=== PATIENT | male | born 1975 ===

== ENCOUNTER 2017-05-04 18:26 | Inpatient (IN) ==
--- NOTE | 2017-05-04 20:01 | Emergency Department Note ---
Arrival - Arrival Chief Complaint: Extremity Problem Stated Complaint: cellulitis/fever ED Nursing Triage Note: PT TRANSFERRED FROM [facility] FOR EVALUATION OF CELLULITIS OF BILAT LOWER EXT AND FEVER. PT REPORTS FEVER AND CHILLS X1 WEEK. PT HAS HISTORY OF CHARCOT FEET. OPEN, WEEPING, WOUND NOTED TO BOTH RIGHT AND LEFT FOOT. Mode of Arrival: Stretcher Time Seen by Provider: 05/04/17 19:11 - History of Present Illness HPI Narrative: This is a 41-year-old male [place] descent with a history of type 2 diabetes on insulin and charcot joint disease who has chronic ulcers of both feet and who has hardware within his right foot who presents with fever and chills for the past week creased pain and swelling of the right foot for which she went to [facility] where it was felt that he may be suffering from osteomyelitis or possibly sepsis. CBC and chemistries were essentially normal. X-ray of the right foot did not show definite osteomyelitis. However the patient was sent to [facility] for diabetic foot and admission. Allergies/Adverse Reactions: Allergies Allergy/AdvReac Type Severity Reaction Status Date / Time ampicillin Allergy Severe RASH Verified 05/04/17 18:42 clindamycin Allergy Severe SHORTNESS Verified 05/04/17 18:42 OF BREATH Home Medications: Home Medications Medication Instructions Recorded Confirmed Type Insulin Detemir [Levemir] 45 unit SUBCUT BEDTIME 02/10/16 02/07/17 History Insulin Regular [HumuLIN R] 10 unit SUBCUT TID 02/10/16 02/07/17 History Aspirin 81 mg PO DAILY 01/13/17 02/07/17 History Lisinopril 5 mg PO DAILY 01/13/17 02/07/17 History Insulin Aspart [NovoLOG FlexPen] 10 units SUBCUT TID W/MEALS 01/14/17 02/07/17 History Simvastatin 10 mg PO DAILY 01/14/17 02/07/17 History HYDROcodone/ACETAMIN 5-325 [[place] 1 tablet PO Q4H PRN #10 tablet 02/07/17 Rx 5-325] Review of System - Review of System Constitutional: Absent: fever, night sweats Eyes: Absent: redness, vision change Head/Ears/Nose/Throat: Absent: epistaxis, nasal drainage Respiratory: Absent: respiratory distress Cardiovascular: Absent: dyspnea on exertion, orthopnea Gastrointestinal: Absent: diarrhea, constipation, hematemesis Genitourinary male: Absent: dysuria, hematuria Musculoskeletal: Present: leg pain. Absent: lower back pain Skin: Absent: change in color, change in hair/nails Neurological: Absent: numbness, paresthesias Psychiatric: Absent: anxiety, depression Endocrine: Absent: heat intolerance, polydipsia, polyuria Hematological/Lymphatic: Absent: easy bruising, lymphadenopathy Allergic/Immunologic: Absent: urticaria, itchy eyes Medical,Surgical,& Family Hx - Medical History Cardio: History of: Hypertension (On Lisinopril) Psychological: No history of: Psychiatric Problems Neurology: No history of: Seizures, Neurological Problems HEENT: History of: Eye Problem (GLASSES) Endocrine: History of: Diabetes Mellitus (IDDM), Diabetes Mellitus (NIDDM), Dyslipidemia Rheumatology: No history of;: Rheumatological Problems Respiratory: History of: Bronchitis (X1) No history of: Respiratory Problems (FLU VAC- NO; PNEU VAC-NO.) Renal: History of: Renal Problems (Chronic Renal Failure-Dr. Avila) Genitourinary: History of: Problems (phimosis) Gastrointestinal: No history of: GI Problems Musculoskeletal: History of: Amputation (LEFT 5TH TOE AMPUTATION.), Musculoskeletal Problems (surgery by Dr. Leonard right foot) Other: History of: Anesthesia Reactions, Skin Problems (x2 Cystic masses Scalp- Sched for Removal Dr. Rascon) - Surgical History Cardiac Surgeries: Patient Denies: Cardiac Surgery Neurologic Surgeries: Patient denies: Neurologic Surgery Abdominal Surgeries: Patient denies: Abdominal Surgery Reproductive Surgeries: Surgical HX of;: Genitourinary Surgery (Circumcision 2015) Orthopedic Surgeries: Surgical HX of;: Orthopedic Surgery (RIGHT FOOT FX WITH INFECTION 2006; LKS) - Family History Family History: Reports;: Family Diabetes, Family Hypertension - Social History Smoking Status: Never smoker Frequency of Alcohol Use: None Type of Drug Use: None Exam Vital Signs: Vital Signs Temperature 99.8 F H 05/04/17 18:26 Pulse Rate 102 H 05/04/17 18:26 Respiratory Rate 18 05/04/17 18:26 Blood Pressure 167/91 05/04/17 18:26 O2 Sat by Pulse Oximetry 98 05/04/17 18:26 - Eye Eye exam: Present: PERRL, EOMI - ENT ENT exam: Present: normal exam, normal oropharynx - Neck Neck exam: Present: normal inspection, full ROM - Chest Chest inspection: Present: normal inspection - Cardiovascular Cardiovascular exam: Present: regular rate, normal rhythm - Abdominal Exam Abdominal exam: Present: soft, normal bowel sounds - Extremities Exam Extremities exam: Present: other (Purulent drainage from a wound on the lateral aspect of the right foot with swelling on the plantar surface. Chronic ulceration of the left foot) - Back Exam Back exam: Present: normal inspection, full ROM - Neurological Exam Neurological exam: Present: alert, oriented X3, CN II-XII intact - Psychiatric Psychiatric exam: Present: normal affect, normal mood - Skin Skin exam: Present: warm, dry Course Course Narrative: The patient is a diabetic foot involving the right foot. Because he has fever and chills may be that he has cellulitis, sepsis or osteomyelitis involving the right foot. Therefore it seems reasonable patient be admitted to the hospital for further evaluation and treatment. The case was discussed with the hospitalist who agreed to admit the patient. Disposition Clinical Impression: Diabetic foot Disposition: Still a Patient Additional Instructions: The case was discussed with the hospitalist who agreed to admit the patient for further evaluation and treatment of possible diabetic foot
--- NOTE | 2017-05-04 20:35 | Hospitalist History & Physical ---
Assessment and Plan (1) Uncontrolled diabetes mellitus Status: Acute Current Visit: Yes (2) History of hypertension Status: Acute Current Visit: Yes (3) Hyperkalemia Status: Acute Current Visit: No (4) Diabetic foot Status: Acute Assessment and plan: Our plan for this patient will be admitting him to our service. Patient has not been started on IV antibiotics. Patient was given some insulin at the [facility] secondary to his increased glucose. Will consult surgery for their evaluation. We will get x-rays of bilateral feet. According to an oral report they had no evidence of osteo-. But the wounds look like they are right on the bone for my evaluation continue home meds as appropriate check an A1c Current Visit: Yes History of Present Illness Chief complaint: Sent from [facility] History of present illness: Mr. Christensen is a 41 year old male with past medical history significant for diabetes , hypertension and increased cholesterol was sent to our hospital from [facility] today. Apparently patient went to primary care clinic today for chills and fever for the past few days. He been noted increasing pain in his bilateral feet. He has what appears to be chronic wounds on both feet both noted to be on the plantar surface. He has a history of sarcoid feet at one time he had a screw placed on his right foot. Both feet and lower legs are warm to touch and tender. They are draining purulent material and they smell infected. I was consulted to admit the patient to our emergency room. Home Medications Medication Instructions Recorded Confirmed Type Insulin Detemir [Levemir] 45 unit SUBCUT BEDTIME 02/10/16 02/07/17 History Insulin Regular [HumuLIN R] 10 unit SUBCUT TID 02/10/16 02/07/17 History Aspirin 81 mg PO DAILY 01/13/17 02/07/17 History Lisinopril 5 mg PO DAILY 01/13/17 02/07/17 History Insulin Aspart [NovoLOG FlexPen] 10 units SUBCUT TID W/MEALS 01/14/17 02/07/17 History Simvastatin 10 mg PO DAILY 01/14/17 02/07/17 History HYDROcodone/ACETAMIN 5-325 [[place] 1 tablet PO Q4H PRN #10 tablet 02/07/17 Rx 5-325] Allergies Allergy/AdvReac Type Severity Reaction Status Date / Time ampicillin Allergy Severe RASH Verified 05/04/17 18:42 clindamycin Allergy Severe SHORTNESS Verified 05/04/17 18:42 OF BREATH Medical,Surgical,& Family Hx - Medical History Cardio: History of: Hypertension (On Lisinopril) Psychological: No history of: Psychiatric Problems Neurology: No history of: Seizures, Neurological Problems HEENT: History of: Eye Problem (GLASSES) Endocrine: History of: Diabetes Mellitus (IDDM), Diabetes Mellitus (NIDDM), Dyslipidemia Rheumatology: No history of;: Rheumatological Problems Respiratory: History of: Bronchitis (X1) No history of: Respiratory Problems (FLU VAC- NO; PNEU VAC-NO.) Renal: History of: Renal Problems (Chronic Renal Failure-Dr. Avila) Genitourinary: History of: Problems (phimosis) Gastrointestinal: No history of: GI Problems Musculoskeletal: History of: Amputation (LEFT 5TH TOE AMPUTATION.), Musculoskeletal Problems (surgery by Dr. Leonard right foot) Other: History of: Anesthesia Reactions, Skin Problems (x2 Cystic masses Scalp- Sched for Removal Dr. Rascon) - Surgical History Cardiac Surgeries: Patient Denies: Cardiac Surgery Neurologic Surgeries: Patient denies: Neurologic Surgery Abdominal Surgeries: Patient denies: Abdominal Surgery Reproductive Surgeries: Surgical HX of;: Genitourinary Surgery (Circumcision 2016) Orthopedic Surgeries: Surgical HX of;: Orthopedic Surgery (RIGHT FOOT FX WITH INFECTION 2006; LKS) - Family History Family History: Reports;: Family Diabetes, Family Hypertension - Social History Smoking Status: Never smoker Frequency of Alcohol Use: None Type of Drug Use: None 12 point system: reviewed and no additional remarkable complaints except as stated Exam - Constitutional Vitals: Period Temp Pulse Resp BP Sys/Bolaños Pulse Ox Last 24 Hr 99.8 F-99.8 F 102-102 18-18 167-167/91-91 98 General appearance: over weight - Head Head exam: Present: normal inspection - Eye Eye exam: Present: EOMI Pupils: Present: SOSA - ENT ENT exam: Present: normal exam - Neck Neck exam: Present: normal inspection - Respiratory Respiratory exam: Present: clear to auscultation bilaterally - Cardiovascular Cardiovascular exam: Present: regular rate and rhythm - GI/Abdominal GI/Abdominal exam: Present: normal bowel sounds - Extremities Exam Extremities exam: Present: other (Patient has purulent drainage from the right foot on the lateral aspect of the plantar surface. There is chronic ulceration on the plantar surface of his left foot also) - Back Exam Back exam: Present: normal inspection - Neurological Exam Neurological exam: Present: alert, oriented X3 - Psychiatric Psychiatric exam: Present: normal affect, normal mood - Skin Skin exam: Present: erythema (Lower extremity) Results - Labs Labs: Calcium 9.1 creatinine 1.4 BUN 16 sodium 137 potassium 4.2 chloride 101 carb 29 glucose 432 white count 8.5 platelets 350 hemoglobin 11.2 and hematocrit 33.5 platelets 350
[2017-05-04] MEDS ORDERED: DEXTROSE 50% 25 GM/50 ML VIAL IV PRN (20:43)
[2017-05-04] MEDS ORDERED: GLUCAGON 1 MG VIAL IM PRN ×2 (20:43→20:53)
[2017-05-04] MEDS ORDERED: DEXTROSE 50% 25 GM/50 ML SYRINGE IV PRN (20:53)
[2017-05-04] MEDS ORDERED: INSULIN GLARGINE 100 UNIT/ML SUBCUT SCH (21:00)
[2017-05-04] MEDS: INSULIN REGULAR 100 UNIT/ML SUBCUT SCH (23:49)
[2017-05-04] MEDS: metroNIDAZOLE INJ 500 MG in PREMIX 1 EACH IV SCH (23:52)
[2017-05-05] MEDS: LEVOFLOXACIN INJ 750 MG in PREMIX 1 EACH IV SCH (01:07)
[2017-05-05] MEDS ORDERED: INFLUENZA VIRUS VACCINE 0.5 ML SYRINGE IM ONE (01:29)
[2017-05-05] MEDS: LINEZOLID INJ 600 MG in PREMIX 1 EACH IV SCH ×2 (02:37→13:14)
[2017-05-05 04:22] LABS: Apearance,Urine CLEAR (Clear); Bilirubin,Urine Negative (Negative); Blood, Urine Small mg/dL (Negative); Glucose,Urine (UA) >=500 mg/dL (Negative); Hyaline Casts,Urine 1 /LPF (0-3); Ketones,Urine Negative (Negative); Nitrite,Urine Negative (Negative); Protein,Urine >=500 MG/DL; RBC,Urine 1 /HPF (0-4); Squamous Epithelial Cell,Urine Occasional /HPF (0-10); Urine Color Yellow (Yellow); Urine Specific Gravity 1.026 (1.001-1.035); Urine Urobilinogen < 2.0 EU/DL (0.2-1.0); WBC,Urine 7 /HPF (0-6)
[2017-05-05 05:32] LABS: Basophils % 0.3 % (0.0-0.8); Eosinophils # 0.3 10*3/uL (0.0-0.87); Eosinophils % 4.4 % (0.00-10.9); Hematocrit 28.4 VOL% (42.0-52.0); Hemoglobin 9.5 GM/DL (14.0-18.0); Immature Granulocytes % 0.5 %; Immature Granulocytes Absolute 0.03 #; Lymphocytes # 1.4 10*3/uL (1.4-4.0); Lymphocytes % 21.6 % (21.2-54.2); Mean Corpuscular HGB Conc 33.5 GM/DL (32-36); Mean Corpuscular Hemoglobin 29 PG (27-34); Mean Corpuscular Volume 86.3 FL (87-102); Mean Platelet Volume 9.8 FL (9.6-12.0); Monocytes # 0.5 10*3/uL (0.11-0.8); Monocytes % 7.9 % (1.7-12.7); Neutrophils # 4.2 10*3/uL (1.4-7.4); Neutrophils % 65.3 % (38.7-73.9); Platelet Count 289 T/CUMM (130-400); Red Blood Count 3.29 MC/CUMM (3.8-5.5); Red Cell Distribution Width 12.5 % (9.3-17.3); White Blood Count 6.4 T/CUMM (4-12)
[2017-05-05 06:02] LABS: Albumin 2.2 G/DL (3.4-5.0); Bilirubin,Total 0.9 MG/DL (0.2-1.0); Calcium 8.4 MG/DL (8.5-10.1); Osmolality,Calculated 295.5 MOS/KG (273-304); Total Protein 6.2 G/DL (6.4-8.3)
[2017-05-05] MEDS: metroNIDAZOLE INJ 500 MG in PREMIX 1 EACH IV SCH ×3 (06:03→23:49)
--- NOTE | 2017-05-05 07:33 | General Surgery Consult Note ---
Assessment and Plan (1) Diabetic foot ulcer Status: Acute Assessment and plan: Plan for excisional debridement of bilateral foot wounds today. Current Visit: Yes History of Present Illness Chief complaint: bilateral foot wounds History of present illness: Mr. Christensen is a 41 year old male with diabetes and previous right foot hardware by Dr. Leonard. He is admitted with bilateral foot cellulitis and wounds. I was consulted for management. Home Medications Medication Instructions Recorded Confirmed Type Insulin Detemir [Levemir] 45 unit SUBCUT BEDTIME 02/10/16 05/05/17 History Insulin Regular [HumuLIN R] 10 unit SUBCUT TID 02/10/16 05/05/17 History Aspirin 81 mg PO DAILY 01/13/17 05/05/17 History Lisinopril 10 mg PO DAILY 01/13/17 05/05/17 History Insulin Aspart [NovoLOG FlexPen] 10 units SUBCUT TID W/MEALS 01/14/17 05/05/17 History Simvastatin 10 mg PO DAILY 01/14/17 05/05/17 History HYDROcodone/ACETAMIN 5-325 [[place] 1 tablet PO Q4H PRN #10 tablet 02/07/17 Rx 5-325] Allergies Allergy/AdvReac Type Severity Reaction Status Date / Time ampicillin Allergy Severe RASH Verified 05/04/17 18:42 clindamycin Allergy Severe SHORTNESS Verified 05/04/17 18:42 OF BREATH Medical,Surgical,& Family Hx - Medical History Cardio: History of: Hypertension (On Lisinopril) Psychological: No history of: Psychiatric Problems Neurology: No history of: Seizures, Neurological Problems HEENT: History of: Eye Problem (GLASSES) Endocrine: History of: Diabetes Mellitus (IDDM), Diabetes Mellitus (NIDDM), Dyslipidemia Rheumatology: No history of;: Rheumatological Problems Respiratory: History of: Bronchitis (X1) No history of: Respiratory Problems (FLU VAC- NO; PNEU VAC-NO.) Renal: History of: Renal Problems (Chronic Renal Failure-Dr. Avila) Genitourinary: History of: Problems (phimosis) Gastrointestinal: No history of: GI Problems Musculoskeletal: History of: Amputation (LEFT 2ND TOE AMPUTATION.), Musculoskeletal Problems (surgery by Dr. Leonard right foot, CHARCOT FOOT (RIGHT) ) Other: History of: Anesthesia Reactions, Skin Problems (x2 Cystic masses Scalp- Sched for Removal Dr. Rascon) - Surgical History Cardiac Surgeries: Patient Denies: Cardiac Surgery Neurologic Surgeries: Patient denies: Neurologic Surgery Abdominal Surgeries: Patient denies: Abdominal Surgery Reproductive Surgeries: Surgical HX of;: Genitourinary Surgery (Circumcision 2016) Orthopedic Surgeries: Surgical HX of;: Orthopedic Surgery (RIGHT FOOT FX WITH INFECTION 2006; LKS) - Family History Family History: Reports;: Family Diabetes (MOTHER,BROTHER), Family Hypertension (MOTHER,BROTHER) - Social History Smoking Status: Never smoker Frequency of Alcohol Use: None Type of Drug Use: None - Constitutional Constitutional: Present: as per HPI - EENT Nose, mouth and throat: Present: as per HPI - Cardiovascular Cardiovascular: Present: as per HPI - Respiratory Respiratory: Present: as per HPI - Gastrointestinal Gastrointestinal: Present: as per HPI - Genitourinary Genitourinary: Present: as per HPI - Musculoskeletal Musculoskeletal: Present: as per HPI - Neurological Neurological: Present: as per HPI - Endocrine Endocrine: Present: as per HPI Hematologic/Lymphatic: Present: as per HPI Exam - Constitutional Vitals: Period Temp Pulse Resp BP Sys/Bolaños Pulse Ox Last 24 Hr 97.7 F-99.8 F 93-103 18-20 114-167/73-91 93-100 General appearance: no acute distress, over weight - Head Head exam: Present: normal inspection, normocephalic - Eye Eye exam: Present: EOMI Pupils: Present: SOSA - ENT ENT exam: Present: normal exam Mouth exam: Present: normal external inspection, normal voice - Neck Neck exam: Present: normal inspection, trachea midline - Respiratory Respiratory exam: Present: clear to auscultation bilaterally. Absent: accessory muscle use, chest wall tenderness - Cardiovascular Cardiovascular exam: Present: RRR. Absent: systolic murmur, tachycardia - GI/Abdominal GI/Abdominal exam: Present: normal bowel sounds, soft. Absent: tenderness, rebound - Extremities Exam Extremities exam: Present: other (bilateral foot ulcers with some necrotic tissue and foul odor. No expressible purulence. Left foot wound over metatarsal heads measures 3cm with necrotic tissue. Right foot wound over fifth metatarsal with necrotic ulceration measuring 3cm) - Neurological Exam Neurological exam: Present: alert, oriented X3 Speech: Present: normal - Skin Skin exam: Present: normal color, warm Results - Labs CBC & BMP: 10/12/17 05:03 05/05/17 05:03
[2017-05-05] MEDS: INSULIN REGULAR 100 UNIT/ML SUBCUT SCH ×6 (07:47→21:37)
--- NOTE | 2017-05-05 09:12 | Hospitalist Progress Note ---
Assessment and Plan (1) Hypertension Status: Acute Assessment and plan: His blood pressure today is 158/86. I will continue his previous medications and adjust as necessary. Current Visit: Yes Qualifiers: Hypertension type: essential hypertension Qualified Code(s): I10 - Essential (primary) hypertension (2) Uncontrolled diabetes mellitus Status: Acute Assessment and plan: His blood glucose today is 382. I will continue his previous insulin regimen and supplement with sliding scale regular insulin coverage. Current Visit: Yes Qualifiers: Diabetes mellitus complication detail: with foot ulcer (3) Diabetic foot ulcer Status: Acute Assessment and plan: He has bilateral diabetic ulcers of the feet with surrounding cellulitis complicating his previous orthopedic procedure. He continues on the above antibiotics. He is to undergo excisional debridement of both feet today. Current Visit: Yes Qualifiers: Diabetic foot ulcer location: unspecified part of foot Diabetes mellitus type: type 1 Laterality: unspecified laterality Hospitalist: Subjective Interval history: Mr. Christensen has bilateral cellulitis of the feet complicating a previous orthopedic procedure of his feet. He is to undergo bilateral excisional debridement of the wounds of his feet today. He is presently being treated with intravenous levofloxacin, linezolid, and metronidazole. Exam - Constitutional Vitals: Period Temp Pulse Resp BP Sys/Bolaños Pulse Ox Last 24 Hr 97.5 F-99.8 F 82-103 18-20 114-167/73-91 93-100 General appearance: no acute distress - Head Head exam: Present: normal inspection - Neck Neck exam: Present: normal inspection - Respiratory Respiratory exam: Present: clear to auscultation bilaterally - Cardiovascular Cardiovascular exam: Present: regular rate and rhythm - GI/Abdominal GI/Abdominal exam: Present: normal bowel sounds, soft, other (Nontender with no palpable masses or hepatosplenomegaly.) - Extremities Exam Extremities exam: Present: other (There are bilateral purulent appearing wounds and surrounding cellulitis of both feet.) - Neurological Exam Neurological exam: Present: alert - Skin Skin exam: Present: normal color, warm, intact Results - Labs CBC & BMP: 05/05/17 05:03 05/05/17 05:03
[2017-05-05] MEDS ORDERED: BUPIVACAINE 0.25% 50 ML VIAL ONE (09:19)
[2017-05-05] MEDS ORDERED: METOCLOPRAMIDE 10 MG/2 ML VIAL ONE (09:24)
[2017-05-05] MEDS ORDERED: PROPOFOL 200 MG/20 ML VIAL IV ONE (09:24)
[2017-05-05] MEDS ORDERED: LIDOCAINE 2% 5 ML VIAL ONE (09:24)
[2017-05-05] MEDS ORDERED: ONDANSETRON 4 MG/2 ML VIAL ONE (09:24)
--- NOTE | 2017-05-05 10:14 | Operative Note ---
Date of procedure: 05/05/17 Pre-op diagnosis: Bilateral foot wound gangrene with diabetic ulcer Post-op diagnosis: same Procedure: Preoperative diagnosis Bilateral foot ulcers with gangrene Postoperative diagnosis Same Procedures performed 1. Excisional debridement of right foot wound 24 cm 2. Excisional debridement of left foot wound 12 cm Findings Excisional debridement of skin and subcutaneous tissue was performed on both the diabetic ulcers with necrotic tissue. This was done with a scalpel. There was no purulence in the foot no crepitance no undrained infection in the forefoot on either side. Complications None apparent Specimen None Anesthesia Monitored local Blood loss Minimal Indications Bilateral foot ulcers with gangrene Description of procedure The patient was taken to the operating room and transferred to the operating table in the supine position. Pressure points were padded and monitored anesthesia was administered. Bilateral feet were prepped with Betadine and draped sterilely. Timeout was called. Local anesthetic was administered around the ulcers on both feet. The left foot ulcer over the metatarsal heads on the lateral aspect of the foot was debrided with excisional debridement using a scalpel and the total debridement size measures 12 cm. This was skin and subcutaneous tissue. Hemostasis was achieved and it was packed with a wet- to-dry Dakin's dressing. The right foot wound was treated similarly. This was also over the lateral aspect of the foot but slightly larger. The gangrenous tissue was excised with a scalpel and measured 24 cm of skin and subcutaneous tissue that was necrotic. Both wounds were debrided back to healthy bleeding tissue. Both wounds are dressed with Dakin soaked wet-to-dry dressing and the patient was awake from anesthesia and transferred to recovery after his feet were wrapped. Postoperative plan Continue wound care and antibiotic Anesthesia: MAC, local Surgeon / Physician: Shaquille Rascon Specimens: none sent Condition: stable Disposition: PACU Results - Labs CBC & BMP: 05/05/17 05:03 05/05/17 05:03 Discharge Plan - Discharge Medications No Action Insulin Detemir [Levemir] 45 unit SUBCUT BEDTIME Insulin Regular [HumuLIN R] 10 unit SUBCUT TID Lisinopril 10 mg PO DAILY Aspirin 81 mg PO DAILY Insulin Aspart [NovoLOG FlexPen] 10 units SUBCUT TID W/MEALS HYDROcodone/ACETAMIN 5-325 [[place] 5-325] 1 tablet PO Q4H PRN #10 tablet PRN Reason: Pain Simvastatin 10 mg PO DAILY - Follow Up or Referral - Forms/Instructions
[2017-05-05] MEDS ORDERED: SEVOFLURANE 1 UNIT/15 MINUTE INH ONE (10:34)
[2017-05-05] MEDS ORDERED: MIDAZOLAM 2 MG/2 ML VIAL ONE (10:34)
[2017-05-05] MEDS ORDERED: fentaNYL 100 MCG/2 ML VIAL ONE (10:35)
[2017-05-05] MEDS: ASPIRIN CHEW 81 MG TABLET PO SCH (12:06)
[2017-05-05] MEDS: LISINOPRIL 10 MG TABLET PO SCH (12:06)
[2017-05-05] MEDS: SIMVASTATIN 10 MG TABLET PO SCH (12:06)
[2017-05-05] MEDS: PANTOPRAZOLE 40 MG TABLET PO SCH (12:06)
[2017-05-05] MEDS: INSULIN LISPRO 100 UNIT/ML SUBCUT SCH ×2 (12:07→17:20)
--- NOTE | 2017-05-05 12:19 | Anesthesia Post-Op ---
Anesthesia Post OP - Post Ansesthetic Evaluation Patient seen in post op: Yes Resp: within normal limits CV: within normal limits Mental: within normal limits Temp: within normal limits [id number]: within normal limits Nausea and Vomiting: within normal limits Pain: within normal limits
[2017-05-05] MEDS ORDERED: INSULIN GLARGINE 100 UNIT/ML SUBCUT SCH (21:00)
[2017-05-05] MEDS: ENOXAPARIN 40 MG/0.4 ML SYRINGE SUBCUT SCH (21:40)
[2017-05-06] MEDS: LEVOFLOXACIN INJ 750 MG in PREMIX 1 EACH IV SCH (00:53)
[2017-05-06] MEDS: ENOXAPARIN 40 MG/0.4 ML SYRINGE SUBCUT SCH ×2 (02:39→21:23)
[2017-05-06] MEDS: LINEZOLID INJ 600 MG in PREMIX 1 EACH IV SCH (03:52)
[2017-05-06] MEDS: ONDANSETRON 4 MG/2 ML VIAL IV PRN (06:12)
[2017-05-06] MEDS: metroNIDAZOLE INJ 500 MG in PREMIX 1 EACH IV SCH (06:12)
[2017-05-06] MEDS: INSULIN LISPRO 100 UNIT/ML SUBCUT SCH ×3 (07:46→18:10)
[2017-05-06] MEDS: INSULIN REGULAR 100 UNIT/ML SUBCUT SCH ×7 (07:46→21:24)
--- NOTE | 2017-05-06 08:37 | Event Note ---
No events overnight. Patient pain is well controlled. Afebrile with normal vital signs. Foot wounds evaluated have good blood supply with no necrotic tissue or undrained infection. We will continue local wound care and antibiotics for now.
[2017-05-06] MEDS: SIMVASTATIN 10 MG TABLET PO SCH (09:13)
[2017-05-06] MEDS: LISINOPRIL 10 MG TABLET PO SCH (09:13)
[2017-05-06] MEDS: PANTOPRAZOLE 40 MG TABLET PO SCH (09:13)
[2017-05-06] MEDS: ASPIRIN CHEW 81 MG TABLET PO SCH (09:13)
--- NOTE | 2017-05-06 09:35 | Hospitalist Progress Note ---
Assessment and Plan (1) Hypertension Status: Acute Assessment and plan: His blood pressure today is 153/92. I will continue his previous medications and adjust as necessary. Current Visit: Yes Qualifiers: Hypertension type: essential hypertension Qualified Code(s): I10 - Essential (primary) hypertension (2) Uncontrolled diabetes mellitus Status: Acute Assessment and plan: His blood glucose today is 251. I will continue his previous insulin regimen and supplement with sliding scale regular insulin coverage. I will is increase his glargine insulin to 50 units subcutaneous nightly. Current Visit: Yes Qualifiers: Diabetes mellitus complication detail: with foot ulcer (3) Diabetic foot ulcer Status: Acute Assessment and plan: He is stable status post excisional debridement of both feet yesterday for diabetic ulcer and surrounding cellulitis. He will require at least 1 week more of intravenous antibiotics. I will change his antibiotics to vancomycin. I will attempt to arrange for outpatient antibiotic therapy. Current Visit: Yes Qualifiers: Diabetic foot ulcer location: unspecified part of foot Diabetes mellitus type: type 1 Laterality: unspecified laterality Hospitalist: Subjective Interval history: Mr. Christensen is stable status post excisional debridement of both feet yesterday. He states that he is only having mild postoperative pain. He has been seen in follow-up by Dr. Rascon who feels that the feet are healing well. He will require continuing antibiotics, which I hope to be able to accomplish as an outpatient. Exam - Constitutional Vitals: Period Temp Pulse Resp BP Sys/Bolaños Pulse Ox Last 24 Hr 96.9 F-98.6 F 84-100 14-20 105-159/67-102 92-98 General appearance: no acute distress - Head Head exam: Present: normal inspection - Neck Neck exam: Present: normal inspection - Respiratory Respiratory exam: Present: clear to auscultation bilaterally - Cardiovascular Cardiovascular exam: Present: regular rate and rhythm - GI/Abdominal GI/Abdominal exam: Present: normal bowel sounds, soft, other (Nontender with no palpable masses or hepatosplenomegaly.) - Extremities Exam Extremities exam: Present: other (Well-healing feet with no evidence of purulence or persistent active infection.) - Skin Skin exam: Present: normal color, warm, intact Results - Labs CBC & BMP: 05/05/17 05:03 05/05/17 05:03 Specialty Discharge - Follow Up or Referrals Follow up with: Shaquille Rascon MD [Physician] -
--- NOTE | 2017-05-06 12:36 | Post Interventional Procedure ---
Pre-op diagnosis: soft tissue wound, custodial IV antibiotics Post-op diagnosis: same Procedure: PICC Placement Contrast: none Flouroscopy: 0.1min Radiologist: Christiano Triplett Anesthesia: local Specimens: none sent Estimated blood loss: none Complications: none Condition: stable Description/Findings: right arm 5 Fr dual lumen power picc placement done and ready for use Assessment and Plan - Time spent with patient Time spent with patient: Less than 30 minutes
--- NOTE | 2017-05-06 12:41 | Interventional Radiology Rpt ---
IR PICC line insertion, US guide vascular access IR PICC Placement Peripherally-inserted central catheter (PICC) placement using ultrasound and fluoroscopic guidance Ultrasound of the left upper extremity Clinical Information: 41-year-old male with history of foot soft tissue wound and needs long-term intravenous antibiotic administration. As requested. Physician: Dr. Triplett Procedure: The patient was advised of the benefits, risks, and alternatives of the procedure and informed consent was obtained. A time out was performed with verification of the patient's name, MRN, site of procedure, and type of procedure to be performed. The patient was positioned in the supine position on the angiographic table. The site was prepped and draped in the usual sterile fashion. Additionally, maximal sterile barrier technique was employed for the procedure. A architect intern radiograph reveals no relevant abnormality. Ultrasound examination of the right arm demonstrates patent and compressible brachial and basilic veins. The right arm was prepped and draped in the usual sterile fashion. The right basilic vein was again identified. Using ultrasound guidance, a 21 gauge needle was used to access the vein. A permanent ultrasound recording of vascular access was obtained for the patient's record. A 0.018" cope wire was then advanced into the vein. The needle was exchanged for a 5 Hungarian peel-away sheath. A 5 Hungarian double lumen Bard Solo PICC catheter was measured and trimmed to the 42 cm rick. The PICC line was advanced through the sheath and into the central circulation. The catheter tip was positioned at the cavo-atrial junction. The peel-away sheath was then removed. At the conclusion of the procedure, the catheter was secured in place using a Stat-Lock device. A sterile dressing was applied. The lumens aspirate and flush freely. The catheter is ready for immediate use. The patient tolerated the procedure well and was returned to the PRU in stable condition. EBL: < 5 mL. Complications: None. Fluoroscopy time: Minutes Total number of images for this study: 2 Conclusion: Successful placement of a 5 Hungarian double lumen Bard Solo power injectable PICC via the right basilic vein. The catheter is ready for immediate use. PROCEDURE INTERPRETED AT [facility] DEPARTMENT OF RADIOLOGY Final Report Signed by: Christiano Triplett
[2017-05-06] MEDS: VANCOMYCIN INJ 2,000 MG in SODIUM CHLORIDE 0.9% 500 ML IV SCH ×2 (13:51→21:24)
[2017-05-06] MEDS ORDERED: INSULIN GLARGINE 100 UNIT/ML SUBCUT SCH (21:00)
[2017-05-07] MEDS: VANCOMYCIN INJ 2,000 MG in SODIUM CHLORIDE 0.9% 500 ML IV SCH ×2 (04:48→12:12)
[2017-05-07 06:19] LABS: Osmolality,Calculated 285.3 MOS/KG (273-304)
[2017-05-07] MEDS ORDERED: SILVER NITRATE STICK 1 EACH TOP ONE (08:40)
--- NOTE | 2017-05-07 09:03 | Hospitalist Progress Note ---
Assessment and Plan (1) Hypertension Status: Acute Assessment and plan: His blood pressure today is 120/71.. I will continue his previous medications and adjust as necessary. Current Visit: Yes Qualifiers: Hypertension type: essential hypertension Qualified Code(s): I10 - Essential (primary) hypertension (2) Uncontrolled diabetes mellitus Status: Acute Assessment and plan: His blood glucose today is 238. I will continue his previous insulin regimen and supplement with sliding scale regular insulin coverage. I will is increase his glargine insulin to 55 units subcutaneous nightly. Current Visit: Yes Qualifiers: Diabetes mellitus complication detail: with foot ulcer (3) Diabetic foot ulcer Status: Acute Assessment and plan: He is stable status post excisional debridement of both feet yesterday for diabetic ulcer and surrounding cellulitis. He will require at least 1 week more of intravenous antibiotics. He is to go home on 05/09/17 on intravenous daptomycin for 1 week. Current Visit: Yes Qualifiers: Diabetic foot ulcer location: unspecified part of foot Diabetes mellitus type: type 1 Laterality: unspecified laterality Hospitalist: Subjective Interval history: Mr. Christensen is doing well today. He has no complaints. He is day 2 status post excisional debridement of both feet. There appear to be healing well. Arrangements are being made for him to go home on intravenous daptomycin. Exam - Constitutional Vitals: Period Temp Pulse Resp BP Sys/Bolaños Pulse Ox Last 24 Hr 97.8 F-98.5 F 84-93 14-19 120-159/70-93 95-98 General appearance: no acute distress - Head Head exam: Present: normal inspection - Neck Neck exam: Present: normal inspection - Respiratory Respiratory exam: Present: clear to auscultation bilaterally - Cardiovascular Cardiovascular exam: Present: regular rate and rhythm - GI/Abdominal GI/Abdominal exam: Present: normal bowel sounds, soft - Extremities Exam Extremities exam: Present: other (Well-healing feet with no evidence of purulence.) - Skin Skin exam: Present: normal color, warm, intact Results - Labs CBC & BMP: 05/05/17 05:03 05/07/17 05:55 Quality Measures - VTE Contraindication to Mechanical VTE Prophylaxis: Trauma to Legs Specialty Discharge - Follow Up or Referrals Follow up with: Shaquille Rascon MD [Physician] -
[2017-05-07] MEDS: SIMVASTATIN 10 MG TABLET PO SCH (09:22)
[2017-05-07] MEDS: ASPIRIN CHEW 81 MG TABLET PO SCH (09:22)
[2017-05-07] MEDS: LISINOPRIL 10 MG TABLET PO SCH (09:22)
[2017-05-07] MEDS: INSULIN REGULAR 100 UNIT/ML SUBCUT SCH ×7 (09:23→21:44)
[2017-05-07] MEDS: INSULIN LISPRO 100 UNIT/ML SUBCUT SCH ×3 (09:23→16:56)
[2017-05-07] MEDS: PANTOPRAZOLE 40 MG TABLET PO SCH (09:24)
--- NOTE | 2017-05-07 10:48 | Event Note ---
05/07/2017. Patient has had a debridement of both feet there is some bleeding from the left foot which I touch with silver nitrate this time get that bleeding site under control. Wound beds look pretty good at this point in wound care is progressing.
[2017-05-07] MEDS: ENOXAPARIN 40 MG/0.4 ML SYRINGE SUBCUT SCH (20:56)
[2017-05-07] MEDS: INSULIN GLARGINE 100 UNIT/ML SUBCUT SCH (21:44)
[2017-05-08] MEDS: ONDANSETRON 4 MG/2 ML VIAL IV PRN (03:31)
--- NOTE | 2017-05-08 08:47 | Hospitalist Progress Note ---
Assessment and Plan (1) Hypertension Status: Acute Assessment and plan: His blood pressure today is 109/74. I will continue his previous medications and adjust as necessary. Current Visit: Yes Qualifiers: Hypertension type: essential hypertension Qualified Code(s): I10 - Essential (primary) hypertension (2) Uncontrolled diabetes mellitus Status: Acute Assessment and plan: His blood glucose today is 195. I will continue his previous insulin regimen and supplement with sliding scale regular insulin coverage. He is presently receiving glargine insulin 55 units subcutaneous nightly. Current Visit: Yes Qualifiers: Diabetes mellitus complication detail: with foot ulcer (3) Diabetic foot ulcer Status: Acute Assessment and plan: He is stable status post excisional debridement of both feet for diabetic ulcers and surrounding cellulitis. He continues to receive intravenous vancomycin. As noted above, if successful arrangements can be made, he will be discharged tomorrow on daily intravenous daptomycin as an outpatient. Current Visit: Yes Qualifiers: Diabetic foot ulcer location: unspecified part of foot Diabetes mellitus type: type 1 Laterality: unspecified laterality Hospitalist: Subjective Interval history: Mr. Christensen is doing well today with no complaints. He continues to be followed by general surgery. If arrangements can be successfully made, he will be discharged tomorrow on home IV daptomycin. Exam - Constitutional Vitals: Period Temp Pulse Resp BP Sys/Bolaños Pulse Ox Last 24 Hr 97.0 F-98.5 F 79-95 18-20 109-164/71-97 94-98 General appearance: no acute distress - Head Head exam: Present: normal inspection - Neck Neck exam: Present: normal inspection - Respiratory Respiratory exam: Present: clear to auscultation bilaterally - Cardiovascular Cardiovascular exam: Present: regular rate and rhythm - GI/Abdominal GI/Abdominal exam: Present: normal bowel sounds, soft - Extremities Exam Extremities exam: Present: other (Both feet are bandaged. Surgery reports that they are healing well.) - Skin Skin exam: Present: normal color, warm, intact Results - Labs CBC & BMP: 05/05/17 05:03 05/07/17 05:55 Quality Measures - VTE Contraindication to Mechanical VTE Prophylaxis: Trauma to Legs Specialty Discharge - Follow Up or Referrals Follow up with: Shaquille Rascon MD [Physician] -
[2017-05-08] MEDS: LISINOPRIL 10 MG TABLET PO SCH (09:42)
[2017-05-08] MEDS: ASPIRIN CHEW 81 MG TABLET PO SCH (09:42)
[2017-05-08] MEDS: INSULIN REGULAR 100 UNIT/ML SUBCUT SCH ×7 (09:43→21:10)
[2017-05-08] MEDS: PANTOPRAZOLE 40 MG TABLET PO SCH (09:43)
[2017-05-08] MEDS: SIMVASTATIN 10 MG TABLET PO SCH (09:43)
[2017-05-08] MEDS: INSULIN LISPRO 100 UNIT/ML SUBCUT SCH ×3 (09:44→16:58)
--- NOTE | 2017-05-08 10:52 | Event Note ---
05/08/2017. Patient is doing very well at this point time no further bleeding from the left foot wound. Will go ahead and try to get him some special shoes to be and cannot protect this is best we can because he can be bearing weight on these areas. Go ahead and get wound care to look at the patient for the purpose of additional wound care.
[2017-05-08] MEDS: LEVOFLOXACIN 500 MG TABLET PO SCH (11:20)
[2017-05-08] MEDS: VANCOMYCIN INJ 2,000 MG in SODIUM CHLORIDE 0.9% 500 ML IV SCH (15:21)
[2017-05-08] MEDS: ENOXAPARIN 40 MG/0.4 ML SYRINGE SUBCUT SCH (21:10)
[2017-05-08] MEDS: INSULIN GLARGINE 100 UNIT/ML SUBCUT SCH (21:10)
[2017-05-09] MEDS: VANCOMYCIN INJ 2,000 MG in SODIUM CHLORIDE 0.9% 500 ML IV SCH (04:07)
--- NOTE | 2017-05-09 07:23 | Event Note ---
No events over the weekend. He did have some silver nitrate application to the left foot wound for some venous bleeding. On exam he is afebrile with normal vital signs. The wounds are clean and dry with good healthy tissue. No necrotic tissue or purulent drainage. I believe the patient can be discharged home and he prefers to go to the [facility] for dressing changes so we will try to set this up through social work today. He is being discharged on IV antibiotics and I think this is acceptable. I will see him back in clinic in 1 week for a wound check. In my opinion he can go home today if these things can be set up.
[2017-05-09] MEDS: INSULIN REGULAR 100 UNIT/ML SUBCUT SCH ×4 (09:00→15:38)
[2017-05-09] MEDS: ASPIRIN CHEW 81 MG TABLET PO SCH (09:23)
[2017-05-09] MEDS: INSULIN LISPRO 100 UNIT/ML SUBCUT SCH ×2 (09:23→12:48)
[2017-05-09] MEDS: LISINOPRIL 10 MG TABLET PO SCH (09:23)
[2017-05-09] MEDS: PANTOPRAZOLE 40 MG TABLET PO SCH (09:24)
[2017-05-09] MEDS: SIMVASTATIN 10 MG TABLET PO SCH (09:24)
--- NOTE | 2017-05-09 09:25 | Discharge Summary ---
<Wendy Amaya - Last Filed: 05/09/17 09:26> Hospital Course - Hospital Course Hospital Course: This is a chronically ill 41-year-old male that presented to the ED at [facility] on the night of May 04, 2017 as a transfer from the [facility] for the evaluation of bilateral lower extremity cellulitis and fever. 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 Patient has a surgical history significant for left fifth toe amputation and multiple diabetic ulceration debridements. The patient reported the onset of symptoms 1 week prior to presentation. The patient reported a gradual onset of chills and fever with increased pain and edema of the right foot. The patient initially sought medical attention at the [facility]. The patient was evaluated at the [facility]. The medical staff there became concern of the presence of possible osteomyelitis or sepsis. The patient was subsequently transferred to [facility] for further evaluation. The patient was assessed at the time of ED presentation. The patient was noted to have bilateral lower extremity plantar diabetic ulcerations with purulent drainage noted. Labs were significant for calcium 9.1, creatinine 1.4, BUN 16, sodium 137, potassium 4.2, chloride 101, carbon dioxide 29, glucose 432, white blood cell count 8.5, platelets 350, hemoglobin 11.2, and hematocrit 33.5. The patient was subsequently admitted to the hospitalist service for continuation of care. A general surgery consultation was requested to assist in the management of the patient during the clinical encounter. Gentle rehydration, empiric antibiotics, glucose therapy, protein pump inhibitors, and deep vein thrombosis prophylactics were initiated. The patient was evaluated by general surgery and recommendations were given. On April, the patient underwent excisional debridement of both right foot and left foot wound. Empiric antibiotic coverage was continued. The patient's condition gradually improved. The patient's condition is stable. He has not experienced any significant overnight events. Today, we feel that he is indeed appropriate for discharge to follow-up with his primary care physician at the [facility] as directed. In addition, the patient will be discharged with instructions to complete daptomycin 500 mg intravenously every 24 hours for the next 6 days. Outpatient antibiotic therapy has been arranged at the [facility]. The patient has been instructed to follow-up with Dr. Shaquille Rascon at the wound care clinic in 1 week; May 23, 2017 at 1:15 PM. I agree with the discharge summary as dictated by Wendy Amaya. I have seen and examined Mr. Christensen on the day of discharge. As noted above he will follow up with his primary care physician at the [facility]. - Time spent with patient Time with patient DS: Greater than 30 minutes Diagnosis - Discharge Diagnosis (1) Diabetic foot Status: Chronic (2) Hypertension Status: Chronic (3) Uncontrolled diabetes mellitus Status: Chronic (4) UTI (urinary tract infection) Status: Resolved Specialty Discharge - Follow Up or Referrals Follow up with: Shaquille Rascon MD [Physician] - 05/23/17 1:15 pm - Speciality Discharge Instructions Hospitalist Instructions: Follow-up at the [facility] in 3-5 days. Follow-up with Dr. Rascon as directed. Continue to take all medications as ordered. Discharge Plan - Discharge Data Disposition: Disch To Home/Self Care Condition at Discharge: Stable Discharge Diet: diabetic diet Activity: increase activity as tolerated, no prolonged standing Hygiene: no restrictions, keep area(s) dry Weight Bearing at Discharge: weight bear as tolerated Driving: no restrictions Contact your physician if you experience:: fever over 101, Redness or swelling, Nausea/Vomiting, Shortness of breath, Bleeding, pain uncontrolled by pain medications - Discharge Medications New DAPTOmycin [Daptomycin] 500 mg IV DAILY #6 vial HYDROcodone/ACETAMIN 7.5-325 [[place] 7.5-325] 1 tablet PO Q6H PRN #28 tablet PRN Reason: Pain Moderate (4-7) Insulin Lispro [HumaLOG] 10 unit SUBCUT TID W/MEALS unit Levofloxacin Tab [Levaquin Tab] 500 mg PO Q24H #14 tablet Simvastatin [Zocor] 10 mg PO DAILY #0 tablet Lisinopril [Prinivil] 10 mg PO DAILY tablet Continue Aspirin 81 mg PO DAILY Insulin Aspart [NovoLOG FlexPen] 10 units SUBCUT TID W/MEALS Changed Insulin Detemir [Levemir] 55 unit SUBCUT BEDTIME #0 Discontinued Insulin Regular [HumuLIN R] 10 unit SUBCUT TID Lisinopril 10 mg PO DAILY HYDROcodone/ACETAMIN 5-325 [[place] 5-325] 1 tablet PO Q4H PRN #10 tablet PRN Reason: Pain Simvastatin 10 mg PO DAILY - Follow Up or Referral Follow Up: Shaquille Rascon MD [Physician] - 05/23/17 1:15 pm - Forms/Instructions Instructions: Debridement (DC), Diabetic Foot Ulcers (DC) Exam - Constitutional Vitals: Period Temp Pulse Resp BP Sys/Bolaños Pulse Ox Last 24 Hr 97.8 F-98.5 F 79-96 18-20 120-172/70-92 91-99 General appearance: no acute distress, morbidly obese - Head Head exam: Present: normal inspection, normocephalic, atraumatic - Eye Eye exam: Present: EOMI, conjunctival injection. Absent: nystagmus Pupils: Present: SOSA, normal accommodation - ENT ENT exam: Present: normal exam, normal external ear exam, normal oropharynx - Neck Neck exam: Present: normal inspection. Absent: lymphadenopathy, meningismus, tenderness, thyromegaly - Respiratory Respiratory exam: Present: clear to auscultation bilaterally. Absent: rales, rhonchi, stridor, wheezes - Cardiovascular Cardiovascular exam: Present: regular rate and rhythm. Absent: carotid bruit, diastolic murmur, gallop, JVD, rubs, systolic murmur - GI/Abdominal GI/Abdominal exam: Present: normal bowel sounds, soft - Extremities Exam Extremities exam: Present: normal capillary refill, full ROM, edema (+2 edema noted to bilateral lower extremities per), other (Ulceration noted to the right and left foot) - Back Exam Back exam: Present: normal inspection - Neurological Exam Neurological exam: Present: alert, oriented X3, CN II-XII intact - Psychiatric Psychiatric exam: Present: normal affect, normal mood - Skin Skin exam: Present: normal color, warm, dry Discharge Results Procedures and tests throughout hospitalization: Pending Orders 05/04/17 23:24 Blood Culture Routine Wound Culture Routine Wound Culture Routine Labs on day of discharge: Labs from last 24 hours 05/09/17 05/09/17 05/08/17 10:44 06:51 19:27 POC Glucose 164 H 168 H 125 H 05/08/17 15:28 POC Glucose 124 H Preliminary micro results at discharge 05/04/17 23:24 Wound Culture - Preliminary Foot - Right Stenotrophomonas maltophilia Gram Positive Cocci 05/04/17 23:24 Wound Culture - Preliminary Foot - Left Stenotrophomonas maltophilia Gram Positive Cocci 05/04/17 23:24 Blood Culture - Preliminary Blood No growth at 3 days 05/04/17 23:24 Blood Culture - Preliminary Blood No growth at 3 days DS: Provider Date of admission: 05/04/17 20:45 Primary care physician: Abigail Denise MD Attending physician on admission: Isreal Jade Consults: 05/04/17 20:43 Consult to Physician [CONS] Routine Comment: Consulting Provider: Shaquille Rascon Consulting Provider Notified: Yes When should Consulting Provider be notified: Now Person Notified: Dr. Rascon saw Date Notified: 05/05/17 Time Notified: 07:25 Consult Notification Comment: kyleigh called with room number and consult 05/04/17 20:47 Consult to Wound Care [facility] [CONS] Routine Reason for Wound Care: Wound Care Management Consult Comment: bilateral foot wounds 05/05/17 01:29 Consult to Pastoral Services [CONS] Routine Comment: Pastoral Screen: Request Forming Yardage Control Operator Visit Pastoral Screen Source of Request: Patient 05/06/17 09:40 Consult to Case Mgmt/Social Srvs [CONS] Routine Reason for Case Mgmt/Social Srvs: Home IV Therapy Consult Comment: IV vancomycin for 10 days Consult to Pharmacy [CONS] Routine Reason for Pharmacy Consult: Dose/Manage Vancomycin 05/08/17 08:14 Consult to Case Mgmt/Social Srvs [CONS] Routine Reason for Case Mgmt/Social Srvs: Home IV Therapy Consult Comment: possible discharge tomorrow on daily iv daptomycin 05/08/17 10:31 Consult to Case Mgmt/Social Srvs [CONS] Routine Reason for Case Mgmt/Social Srvs: Home IV Therapy Consult Comment: Daptomycin 4mg/kg IV daily for 7 days; possible discharge tomorrow. Discharging clinician: Wendy Amaya CNP <Isreal Jade - Last Filed: 05/09/17 13:00> Diagnosis - Discharge Diagnosis (1) Hypertension Status: Chronic (2) Uncontrolled diabetes mellitus Status: Chronic (3) Diabetic foot ulcer Status: Acute
[2017-05-09] MEDS ORDERED: DAPTOmycin 500 MG in SODIUM CHLORIDE 0.9% 50 ML IV SCH (10:00)
[2017-05-09] MEDS: LEVOFLOXACIN 500 MG TABLET PO SCH (12:45)
[2017-05-09 16:31] VITALS: BP 159/99
== END 2017-05-09 16:20 | disposition home or self-care (01) | DRG 264 ==
LOC: EDBD → EDUNIT# → N.ED 18:26 → SUATTDRO 20:45 → N.EDINP 22:33 → N.3E 22:38
PROVIDERS: ATTEND Internal Medicine

== ENCOUNTER 2019-08-27 15:08 | Inpatient (IN) ==
[2019-08-27] MEDS ORDERED: INFLUENZA VIRUS VACCINE 0.5 ML SYRINGE IM ONE (18:39)
[2019-08-27] MEDS ORDERED: ONDANSETRON 4 MG/2 ML VIAL IV PRN (18:48)
[2019-08-27] MEDS ORDERED: ZALEPLON 5 MG CAPSULE PO PRN (18:48)
[2019-08-27] MEDS ORDERED: GLUCAGON 1 MG VIAL IM PRN (18:48)
[2019-08-27] MEDS ORDERED: ACETAMINOPHEN 325 MG TABLET PO PRN (18:48)
[2019-08-27] MEDS ORDERED: DEXTROSE 10% 250 ML BAG IV PRN (18:48)
[2019-08-27 19:38] LABS: Basophils % 0.3 % (0.0-0.8); Eosinophils # 0.2 10*3/uL (0.0-0.87); Eosinophils % 2.7 % (0.00-10.9); Hematocrit 32.1 VOL% (42.0-52.0); Hemoglobin 10.6 GM/DL (14.0-18.0); Immature Granulocytes % 0.3 %; Immature Granulocytes Absolute 0.02 #; Lymphocytes # 1.6 10*3/uL (1.4-4.0); Lymphocytes % 21.8 % (21.2-54.2); Mean Corpuscular Volume 88.7 FL (87-102); Mean Platelet Volume 10.9 FL (9.6-12.0); Monocytes % 7.2 % (1.7-12.7); Neutrophils % 67.7 % (38.7-73.9); Platelet Count 207 T/CUMM (130-400); Red Blood Count 3.62 MC/CUMM (3.8-5.5); Red Cell Distribution Width 13.7 % (9.3-17.3); White Blood Count 7.4 T/CUMM (4-12)
[2019-08-27 19:58] LABS: Albumin 2.1 G/DL (3.4-5.0); Bilirubin,Total 1.2 MG/DL (0.2-1.0); Calcium 8.2 MG/DL (8.5-10.1); Osmolality,Calculated 286.8 MOS/KG (273-304); Total Protein 6.1 G/DL (6.4-8.3)
[2019-08-27] MEDS: MEROPENEM 500 MG in SODIUM CHLORIDE 0.9% 100 ML IV SCH (20:38)
[2019-08-27] MEDS: INSULIN LISPRO 100 UNIT/ML SUBCUT SCH (20:39)
[2019-08-27] MEDS: ATORVASTATIN 20 MG TABLET PO SCH (22:06)
[2019-08-27] MEDS: hydrALAZINE 10 MG TABLET PO SCH (22:06)
[2019-08-27] MEDS: LINEZOLID INJ 600 MG in PREMIX 1 EACH IV SCH (22:06)
[2019-08-27] MEDS: carvediloL 12.5 MG TABLET PO SCH (22:06)
[2019-08-28] MEDS: SODIUM CHLORIDE 0.9% 1,000 ML IV SCH ×3 (04:11→21:37)
[2019-08-28] MEDS: MEROPENEM 500 MG in SODIUM CHLORIDE 0.9% 100 ML IV SCH ×4 (04:11→21:29)
[2019-08-28 05:50] LABS: Calcium 7.7 MG/DL (8.5-10.1); Osmolality,Calculated 288.7 MOS/KG (273-304)
[2019-08-28] MEDS: hydrALAZINE 10 MG TABLET PO SCH ×2 (09:14→21:27)
[2019-08-28] MEDS: ASPIRIN CHEW 81 MG TABLET PO SCH (09:14)
[2019-08-28] MEDS: MAGNESIUM OXIDE 400 MG TABLET PO SCH (09:14)
[2019-08-28] MEDS: PANTOPRAZOLE 40 MG TABLET PO SCH (09:14)
[2019-08-28] MEDS: carvediloL 12.5 MG TABLET PO SCH ×2 (09:14→21:27)
[2019-08-28] MEDS: INSULIN LISPRO 100 UNIT/ML SUBCUT SCH ×4 (09:14→21:28)
[2019-08-28] MEDS: LINEZOLID INJ 600 MG in PREMIX 1 EACH IV SCH ×2 (09:51→22:45)
[2019-08-28] MEDS ORDERED: POTASSIUM CHLORIDE 20 MEQ TABLET PO ONE (15:35)
[2019-08-28] MEDS: ENOXAPARIN 40 MG/0.4 ML SYRINGE SUBCUT SCH (16:51)
[2019-08-28] MEDS ORDERED: INSULIN GLARGINE 100 UNIT/ML SUBCUT SCH (21:00)
[2019-08-28] MEDS: ATORVASTATIN 20 MG TABLET PO SCH (21:27)
[2019-08-29] MEDS: MEROPENEM 500 MG in SODIUM CHLORIDE 0.9% 100 ML IV SCH ×4 (03:55→21:05)
[2019-08-29] MEDS: SODIUM CHLORIDE 0.9% 1,000 ML IV SCH ×2 (05:31→10:56)
[2019-08-29 05:52] LABS: Basophils % 0.4 % (0.0-0.8); Eosinophils # 0.3 10*3/uL (0.0-0.87); Eosinophils % 5.1 % (0.00-10.9); Hematocrit 29.7 VOL% (42.0-52.0); Hemoglobin 9.6 GM/DL (14.0-18.0); Immature Granulocytes % 0.4 %; Immature Granulocytes Absolute 0.02 #; Lymphocytes # 1.4 10*3/uL (1.4-4.0); Lymphocytes % 25.5 % (21.2-54.2); Mean Corpuscular HGB Conc 32.3 GM/DL (32-36); Mean Platelet Volume 11.4 FL (9.6-12.0); Monocytes % 6.8 % (1.7-12.7); Neutrophils % 61.8 % (38.7-73.9); Platelet Count 200 T/CUMM (130-400); Red Cell Distribution Width 13.7 % (9.3-17.3); White Blood Count 5.5 T/CUMM (4-12)
[2019-08-29 06:07] LABS: Calcium 7.5 MG/DL (8.5-10.1); Osmolality,Calculated 282.7 MOS/KG (273-304)
[2019-08-29] MEDS: INSULIN LISPRO 100 UNIT/ML SUBCUT SCH ×4 (08:42→21:05)
[2019-08-29] MEDS: POTASSIUM CHLORIDE 20 MEQ TABLET PO SCH (09:26)
[2019-08-29] MEDS: PANTOPRAZOLE 40 MG TABLET PO SCH (09:26)
[2019-08-29] MEDS: MAGNESIUM OXIDE 400 MG TABLET PO SCH (09:26)
[2019-08-29] MEDS: ASPIRIN CHEW 81 MG TABLET PO SCH (09:26)
[2019-08-29] MEDS: hydrALAZINE 10 MG TABLET PO SCH ×2 (09:26→21:06)
[2019-08-29] MEDS: carvediloL 12.5 MG TABLET PO SCH ×2 (09:26→21:06)
[2019-08-29] MEDS: LINEZOLID INJ 600 MG in PREMIX 1 EACH IV SCH ×2 (10:04→23:25)
[2019-08-29] MEDS ORDERED: LIDOCAINE 1% 20 ML VIAL ONE (10:43)
[2019-08-29] MEDS ORDERED: BUPIVACAINE MPF 0.25% 30 ML VIAL ONE (10:43)
[2019-08-29] MEDS ORDERED: LIDOCAINE 2% 5 ML VIAL ONE (11:38)
[2019-08-29] MEDS ORDERED: MIDAZOLAM 2 MG/2 ML VIAL ONE (11:38)
[2019-08-29] MEDS ORDERED: propofoL 200 MG/20 ML VIAL IV ONE (11:38)
[2019-08-29] MEDS ORDERED: DEXAMETHASONE 4 MG/1 ML VIAL ONE (11:38)
[2019-08-29] MEDS ORDERED: ONDANSETRON 4 MG/2 ML VIAL ONE (11:38)
[2019-08-29] MEDS ORDERED: SEVOFLURANE 1 UNIT/15 MINUTE INH ONE (11:38)
[2019-08-29] MEDS ORDERED: KETOROLAC 30 MG/1 ML VIAL ONE (11:39)
[2019-08-29] MEDS ORDERED: PHENYLEPHRINE 1 MG/10 ML SYRINGE IV ONE (11:39)
[2019-08-29] MEDS: ENOXAPARIN 40 MG/0.4 ML SYRINGE SUBCUT SCH (15:41)
[2019-08-29] MEDS ORDERED: INSULIN GLARGINE 100 UNIT/ML SUBCUT SCH (21:00)
[2019-08-29] MEDS: ATORVASTATIN 20 MG TABLET PO SCH (21:06)
[2019-08-30] MEDS: SODIUM CHLORIDE 0.9% 1,000 ML IV SCH (03:01)
[2019-08-30] MEDS: MEROPENEM 500 MG in SODIUM CHLORIDE 0.9% 100 ML IV SCH ×2 (03:01→09:30)
[2019-08-30 05:37] LABS: Basophils % 0.4 % (0.0-0.8); Eosinophils # 0.1 10*3/uL (0.0-0.87); Eosinophils % 1.7 % (0.00-10.9); Hematocrit 29.9 VOL% (42.0-52.0); Hemoglobin 9.7 GM/DL (14.0-18.0); Immature Granulocytes % 0.2 %; Immature Granulocytes Absolute 0.01 #; Lymphocytes # 1.2 10*3/uL (1.4-4.0); Mean Corpuscular HGB Conc 32.4 GM/DL (32-36); Mean Corpuscular Volume 90.9 FL (87-102); Monocytes % 7.3 % (1.7-12.7); Neutrophils % 67.4 % (38.7-73.9); Platelet Count 222 T/CUMM (130-400); Red Blood Count 3.29 MC/CUMM (3.8-5.5); Red Cell Distribution Width 13.5 % (9.3-17.3); White Blood Count 5.2 T/CUMM (4-12)
[2019-08-30 05:55] LABS: Calcium 7.3 MG/DL (8.5-10.1)
[2019-08-30] MEDS: MAGNESIUM OXIDE 400 MG TABLET PO SCH (09:26)
[2019-08-30] MEDS: hydrALAZINE 10 MG TABLET PO SCH (09:27)
[2019-08-30] MEDS: PANTOPRAZOLE 40 MG TABLET PO SCH (09:27)
[2019-08-30] MEDS: carvediloL 12.5 MG TABLET PO SCH (09:27)
[2019-08-30] MEDS: INSULIN LISPRO 100 UNIT/ML SUBCUT SCH ×2 (09:27→12:05)
[2019-08-30] MEDS: ASPIRIN CHEW 81 MG TABLET PO SCH (09:27)
[2019-08-30] MEDS: ENOXAPARIN 40 MG/0.4 ML SYRINGE SUBCUT SCH (09:27)
[2019-08-30] MEDS: POTASSIUM CHLORIDE 20 MEQ TABLET PO SCH (09:27)
[2019-08-30] MEDS: LINEZOLID INJ 600 MG in PREMIX 1 EACH IV SCH (12:05)
[2019-08-30] MEDS ORDERED: LEVOFLOXACIN 500 MG TABLET PO SCH (16:00)
[2019-08-30 16:30] VITALS: BP 192/98
== END 2019-08-30 16:53 | disposition home or self-care (01) | DRG 264 ==
LOC: SUATTDRO 17:57 → N.2E 17:57
PROVIDERS: ADMIT Internal Medicine; ATTEND Hospitalist

== ENCOUNTER 2022-09-05 15:35 | Inpatient (IN) ==
[2022-09-05] MEDS ORDERED: ACETAMINOPHEN 325 MG TABLET PO PRN (18:09)
[2022-09-05] MEDS ORDERED: GLUCAGON 1 MG VIAL IM PRN (18:09)
[2022-09-05] MEDS ORDERED: DEXTROSE 10% 250 ML BAG IV PRN (18:27)
[2022-09-05] MEDS: ALBUTEROL 2.5 MG/3 ML NEB RESP TX SCH (19:27)
[2022-09-05 19:49] LABS: Calcium 6.6 MG/DL (8.5-10.1); Osmolality,Calculated 282.5 MOS/KG (273-304); Potassium 5.7 MMOL/L (3.5-5.1)
[2022-09-05] MEDS ORDERED: SODIUM BICARB INJ 150 MEQ in STERILE WATER INJ 1,000 ML IV SCH (20:00)
[2022-09-05] MEDS: HEPARIN 5,000 UNIT/1 ML VIAL SUBCUT SCH (21:00)
[2022-09-05] MEDS ORDERED: SODIUM ZIRCONIUM CYCLOSILICATE 10 GM PACK PO ONE (21:00)
[2022-09-05] MEDS: INSULIN LISPRO 100 UNIT/ML SUBCUT SCH (22:34)
[2022-09-06] MEDS: ALBUTEROL 2.5 MG/3 ML NEB RESP TX SCH ×4 (00:44→20:16)
[2022-09-06 06:29] LABS: 25 Hydroxy Vitamin D Total 8.8 NG/ML (30-100)
[2022-09-06 06:40] LABS: Parathyroid Hormone Intact 255.2 PG/ML (18.4-80.1)
[2022-09-06 06:41] LABS: Alanine Aminotransferase 16 U/L (16-61); Albumin 2.8 G/DL (3.4-5.0); Alkaline Phosphatase 130 U/L (45-117); Aspartate Amino Transferase 13 U/L (0-37); Bilirubin,Total < 0.39 MG/DL (0.20-1.00); Blood Urea Nitrogen 103 MG/DL (7-18); Calcium 6.5 MG/DL (8.5-10.1); Carbon Dioxide 12 MMOL/L (21-32); Chloride 98 MMOL/L (98-107); Glucose 120 MG/DL (74-106); Osmolality,Calculated 285.4 MOS/KG (273-304); Potassium 5.6 MMOL/L (3.5-5.1); Sodium 126 MMOL/L (136-145); Total Protein 6.5 G/DL (6.4-8.2)
[2022-09-06 07:49] LABS: Basophils % 0.5 % (0.0-0.8); Eosinophils # 0.1 10*3/uL (0.0-0.87); Eosinophils % 2.1 % (0.00-10.9); Immature Granulocytes % 1.1 %; Immature Granulocytes Absolute 0.07 #; Lymphocytes # 0.7 10*3/uL (1.4-4.0); Lymphocytes % 11.1 % (21.2-54.2); Mean Corpuscular Volume 93.9 FL (87-102); Mean Platelet Volume 9.3 FL (9.6-12.0); Monocytes # 0.5 10*3/uL (0.11-0.8); Monocytes % 7.3 % (1.7-12.7); Neutrophils % 77.9 % (38.7-73.9); Platelet Count 232 T/CUMM (130-400); Red Blood Count 2.45 MC/CUMM (3.8-5.5); Red Cell Distribution Width 13.7 % (9.3-17.3)
[2022-09-06 07:58] LABS: Hemoglobin 7.6 GM/DL (14.0-18.0)
[2022-09-06] MEDS: INSULIN LISPRO 100 UNIT/ML SUBCUT SCH ×4 (08:56→21:19)
[2022-09-06] MEDS: HEPARIN 5,000 UNIT/1 ML VIAL SUBCUT SCH ×2 (08:59→21:22)
[2022-09-06] MEDS: PANTOPRAZOLE 40 MG TABLET PO SCH (08:59)
[2022-09-06] MEDS ORDERED: SODIUM CHLORIDE 0.9% 1,000 ML IV SCH (14:30)
[2022-09-06] MEDS: hydrALAZINE 25 MG TABLET PO SCH ×2 (16:05→21:20)
[2022-09-06] MEDS: SODIUM BICARB INJ 50 MEQ in SODIUM CHLORIDE 0.45% 1,000 ML IV SCH ×2 (16:10→23:42)
[2022-09-06] MEDS: SODIUM ZIRCONIUM CYCLOSILICATE 10 GM PACK PO SCH (16:10)
[2022-09-06] MEDS ORDERED: INSULIN DETEMIR 100 UNIT/ML SUBCUT SCH (19:00)
[2022-09-07] MEDS: ALBUTEROL 2.5 MG/3 ML NEB RESP TX SCH ×4 (01:34→19:13)
[2022-09-07 05:48] LABS: Basophils % 0.3 % (0.0-0.8); Eosinophils # 0.1 10*3/uL (0.0-0.87); Eosinophils % 2.1 % (0.00-10.9); Hemoglobin 6.7 GM/DL (14.0-18.0); Immature Granulocytes % 1.1 %; Immature Granulocytes Absolute 0.07 #; Lymphocytes # 0.7 10*3/uL (1.4-4.0); Lymphocytes % 9.8 % (21.2-54.2); Mean Corpuscular HGB Conc 33.5 GM/DL (32-36); Mean Corpuscular Volume 92.6 FL (87-102); Mean Platelet Volume 9.4 FL (9.6-12.0); Monocytes # 0.5 10*3/uL (0.11-0.8); Monocytes % 7.7 % (1.7-12.7); Platelet Count 217 T/CUMM (130-400); Red Blood Count 2.16 MC/CUMM (3.8-5.5); Red Cell Distribution Width 13.4 % (9.3-17.3); White Blood Count 6.63 T/CUMM (4-12)
[2022-09-07] MEDS: SODIUM BICARB INJ 50 MEQ in SODIUM CHLORIDE 0.45% 1,000 ML IV SCH ×3 (06:02→23:58)
[2022-09-07 06:18] LABS: Calcium 5.9 MG/DL (8.5-10.1); Osmolality,Calculated 278.8 MOS/KG (273-304); Potassium 4.7 MMOL/L (3.5-5.1)
[2022-09-07 06:55] LABS: Hepatitis B Core IgM Quant 0.08 Index; Hepatitis B Surface Ag Quant < 0.10 Index; Hepatitis B Surface Ag Result Non-Reactive (NonReactive); Hepatitis C Virus Ab Quant 0.03 Index; Hepatitis C Virus Ab Result Non-Reactive (NonReactive)
[2022-09-07] MEDS ORDERED: SODIUM CHLORIDE 0.9% 1,000 ML IV PRN (08:15)
[2022-09-07] MEDS ORDERED: SODIUM BICARB INJ 50 MEQ in SODIUM CHLORIDE 0.9% 1,000 ML IV SCH (08:30)
[2022-09-07] MEDS: PANTOPRAZOLE 40 MG TABLET PO SCH (10:41)
[2022-09-07] MEDS: amLODIPine 10 MG TABLET PO SCH (10:43)
[2022-09-07] MEDS: HEPARIN 5,000 UNIT/1 ML VIAL SUBCUT SCH ×2 (10:43→20:57)
[2022-09-07] MEDS: hydrALAZINE 25 MG TABLET PO SCH ×3 (10:43→20:57)
[2022-09-07] MEDS: SODIUM ZIRCONIUM CYCLOSILICATE 10 GM PACK PO SCH (10:43)
[2022-09-07] MEDS: INSULIN LISPRO 100 UNIT/ML SUBCUT SCH ×4 (10:47→20:54)
[2022-09-07] MEDS: CALCIUM (CARBONATE) 500 MG TABLET PO SCH (20:59)
[2022-09-08] MEDS: ALBUTEROL 2.5 MG/3 ML NEB RESP TX SCH ×4 (03:55→19:20)
[2022-09-08 05:16] LABS: Basophils % 0.2 % (0.0-0.8); Eosinophils # 0.2 10*3/uL (0.0-0.87); Eosinophils % 2.8 % (0.00-10.9); Hematocrit 24.6 VOL% (42.0-52.0); Hemoglobin 8.3 GM/DL (14.0-18.0); Immature Granulocytes % 1.3 %; Immature Granulocytes Absolute 0.08 #; Lymphocytes # 0.8 10*3/uL (1.4-4.0); Lymphocytes % 12.1 % (21.2-54.2); Mean Corpuscular HGB Conc 33.7 GM/DL (32-36); Mean Corpuscular Volume 90.8 FL (87-102); Monocytes # 0.5 10*3/uL (0.11-0.8); Monocytes % 8.5 % (1.7-12.7); Neutrophils % 75.1 % (38.7-73.9); Platelet Count 202 T/CUMM (130-400); Red Blood Count 2.71 MC/CUMM (3.8-5.5); Red Cell Distribution Width 13.6 % (9.3-17.3); White Blood Count 6.34 T/CUMM (4-12)
[2022-09-08 05:52] LABS: Osmolality,Calculated 274.8 MOS/KG (273-304); Potassium 4.7 MMOL/L (3.5-5.1)
[2022-09-08] MEDS: INSULIN LISPRO 100 UNIT/ML SUBCUT SCH ×4 (07:34→20:07)
[2022-09-08] MEDS: amLODIPine 10 MG TABLET PO SCH (09:13)
[2022-09-08] MEDS: SODIUM ZIRCONIUM CYCLOSILICATE 10 GM PACK PO SCH (09:13)
[2022-09-08] MEDS: CALCIUM (CARBONATE) 500 MG TABLET PO SCH ×3 (09:13→20:14)
[2022-09-08] MEDS: hydrALAZINE 25 MG TABLET PO SCH ×3 (09:13→20:14)
[2022-09-08] MEDS: PANTOPRAZOLE 40 MG TABLET PO SCH (09:13)
[2022-09-08] MEDS: HEPARIN 5,000 UNIT/1 ML VIAL SUBCUT SCH ×2 (09:18→20:15)
[2022-09-08] MEDS: SODIUM CHLORIDE 0.9% 1,000 ML IV SCH ×2 (09:18→17:28)
[2022-09-08] MEDS: SODIUM BICARB INJ 50 MEQ in SODIUM CHLORIDE 0.45% 1,000 ML IV SCH (09:43)
[2022-09-08] MEDS: ONDANSETRON 4 MG/2 ML VIAL IV PRN (10:48)
[2022-09-09] MEDS: SODIUM CHLORIDE 0.9% 1,000 ML IV SCH ×4 (00:37→23:41)
[2022-09-09] MEDS: ALBUTEROL 2.5 MG/3 ML NEB RESP TX SCH ×4 (00:45→19:24)
[2022-09-09 05:57] LABS: Basophils % 0.3 % (0.0-0.8); Eosinophils # 0.2 10*3/uL (0.0-0.87); Eosinophils % 2.5 % (0.00-10.9); Hematocrit 24.9 VOL% (42.0-52.0); Hemoglobin 8.7 GM/DL (14.0-18.0); Immature Granulocytes Absolute 0.07 #; Lymphocytes # 0.8 10*3/uL (1.4-4.0); Lymphocytes % 11.1 % (21.2-54.2); Mean Corpuscular HGB Conc 34.9 GM/DL (32-36); Mean Corpuscular Volume 89.2 FL (87-102); Mean Platelet Volume 9.3 FL (9.6-12.0); Monocytes # 0.6 10*3/uL (0.11-0.8); Monocytes % 7.9 % (1.7-12.7); Neutrophils % 77.2 % (38.7-73.9); Platelet Count 215 T/CUMM (130-400); Red Blood Count 2.79 MC/CUMM (3.8-5.5); Red Cell Distribution Width 13.6 % (9.3-17.3); White Blood Count 7.13 T/CUMM (4-12)
[2022-09-09 06:17] LABS: Calcium 6.4 MG/DL (8.5-10.1); Osmolality,Calculated 271.1 MOS/KG (273-304); Potassium 4.7 MMOL/L (3.5-5.1)
[2022-09-09] MEDS: INSULIN LISPRO 100 UNIT/ML SUBCUT SCH ×4 (07:16→20:32)
[2022-09-09] MEDS: ONDANSETRON 4 MG/2 ML VIAL IV PRN (07:38)
[2022-09-09] MEDS: amLODIPine 10 MG TABLET PO SCH (08:48)
[2022-09-09] MEDS: hydrALAZINE 25 MG TABLET PO SCH ×3 (08:48→20:28)
[2022-09-09] MEDS: CALCIUM (CARBONATE) 500 MG TABLET PO SCH ×3 (08:48→20:28)
[2022-09-09] MEDS: HEPARIN 5,000 UNIT/1 ML VIAL SUBCUT SCH ×2 (08:48→20:30)
[2022-09-09] MEDS: SODIUM ZIRCONIUM CYCLOSILICATE 10 GM PACK PO SCH (08:48)
[2022-09-09] MEDS: TOLVAPTAN 15 MG TABLET PO SCH (10:25)
[2022-09-09] MEDS: PANTOPRAZOLE 40 MG TABLET PO SCH (10:25)
[2022-09-10] MEDS: ALBUTEROL 2.5 MG/3 ML NEB RESP TX SCH ×4 (01:00→19:10)
[2022-09-10 06:11] LABS: Calcium 6.2 MG/DL (8.5-10.1); Osmolality,Calculated 277.2 MOS/KG (273-304); Potassium 4.6 MMOL/L (3.5-5.1)
[2022-09-10] MEDS: INSULIN LISPRO 100 UNIT/ML SUBCUT SCH ×4 (09:31→20:37)
[2022-09-10] MEDS: SODIUM CHLORIDE 0.9% 1,000 ML IV SCH ×3 (09:32→17:45)
[2022-09-10] MEDS: HEPARIN 5,000 UNIT/1 ML VIAL SUBCUT SCH ×2 (09:33→20:37)
[2022-09-10] MEDS: PANTOPRAZOLE 40 MG TABLET PO SCH (09:33)
[2022-09-10] MEDS: hydrALAZINE 25 MG TABLET PO SCH ×3 (09:35→20:35)
[2022-09-10] MEDS: TOLVAPTAN 15 MG TABLET PO SCH (09:35)
[2022-09-10] MEDS: amLODIPine 10 MG TABLET PO SCH (09:35)
[2022-09-10] MEDS: CALCIUM (CARBONATE) 500 MG TABLET PO SCH ×3 (09:35→20:35)
[2022-09-10] MEDS: SODIUM ZIRCONIUM CYCLOSILICATE 10 GM PACK PO SCH (09:36)
[2022-09-11] MEDS: ALBUTEROL 2.5 MG/3 ML NEB RESP TX SCH ×2 (01:25→07:33)
[2022-09-11] MEDS: SODIUM CHLORIDE 0.9% 1,000 ML IV SCH ×2 (02:34→11:42)
[2022-09-11 06:22] LABS: Calcium 6.6 MG/DL (8.5-10.1); Osmolality,Calculated 283.7 MOS/KG (273-304); Potassium 4.6 MMOL/L (3.5-5.1)
[2022-09-11] MEDS: HEPARIN 5,000 UNIT/1 ML VIAL SUBCUT SCH (08:44)
[2022-09-11] MEDS: TOLVAPTAN 15 MG TABLET PO SCH (10:26)
[2022-09-11] MEDS: CALCIUM (CARBONATE) 500 MG TABLET PO SCH (10:26)
[2022-09-11] MEDS: amLODIPine 10 MG TABLET PO SCH (10:26)
[2022-09-11] MEDS: PANTOPRAZOLE 40 MG TABLET PO SCH (10:26)
[2022-09-11] MEDS: SODIUM ZIRCONIUM CYCLOSILICATE 10 GM PACK PO SCH (10:27)
[2022-09-11] MEDS: INSULIN LISPRO 100 UNIT/ML SUBCUT SCH ×2 (10:27→11:43)
[2022-09-11] MEDS: hydrALAZINE 25 MG TABLET PO SCH (10:27)
[2022-09-11 12:18] VITALS: BP 142/61
== END 2022-09-11 14:27 | disposition home or self-care (01) | DRG 683 ==
LOC: N.2E → SUATTDRO 17:11
PROVIDERS: ADMIT Internal Medicine; ATTEND Emergency Medicine